=== PATIENT | female | born 1985 | race Caucasian/White ===

== ENCOUNTER 2017-06-06 01:28 | Inpatient (IN) | payer BC ==
[2017-06-06] MEDS ORDERED: Sodium Chloride 0.9% 10 ML Syringe FLUSH PRN (01:58)
[2017-06-06] MEDS ORDERED: Nalbuphine 20 MG/1 ML Amp IVPUSH PRN (01:58)
[2017-06-06] MEDS ORDERED: Ondansetron 4 MG/2 ML SDV IVPUSH PRN ×2 (01:58→12:44)
[2017-06-06] MEDS ORDERED: Ampicillin 2 GM in Sodium Chloride 0.9% 100 ML IV ONE (01:58)
[2017-06-06] MEDS ORDERED: Oxytocin/Lactated Ringers 10 UNIT/1,000 ML BAG IV SCH ×2 (02:00→10:15)
[2017-06-06] MEDS ORDERED: Acetaminophen 325 MG Tab PO PRN ×2 (02:07→19:04)
[2017-06-06] MEDS: Lactated Ringers 1,000 ML IV SCH ×4 (02:29→13:33)
[2017-06-06] MEDS: Ampicillin 1 GM in Sodium Chloride 0.9% 100 ML IV SCH ×4 (06:28→19:23)
[2017-06-06] MEDS ORDERED: fentaNYL 100 MCG/2 ML SDV EPIDUR PRN (12:44)
[2017-06-06] MEDS ORDERED: diphenhydrAMINE 50 MG/ML SDV IVPUSH PRN (12:44)
[2017-06-06] MEDS ORDERED: ePHEDrine 50 MG/ML SDV IVPUSH PRN (12:44)
[2017-06-06] MEDS ORDERED: Bupivacaine/fentaNYL/NS 100 ML Bag EPIDUR SCH (12:45)
--- NOTE | 2017-06-06 12:46 | PCM.PREANE ---
Preanesthetic Assessment - Procedure Proposed Procedure: AMY - Anesthesia/Transfusion/Family Hx Anesthesia History: Prior Anesthesia Without Reaction Family History of Anesthesia Reaction: No Transfusion History: No Prior Transfusion(s) - Review of Systems General: No Symptoms Pulmonary: No Symptoms Cardiovascular: No Symptoms Gastrointestinal: Other (GERD with ) Neurological: No Symptoms Other: Reports: None - Physical Assessment NPO Status Date: 06/06/17 NPO Status Time: 11:00 Pulse: 58 O2 Sat by Pulse Oximetry: 96 Respiratory Rate: 15 Vital Signs: Last Vital Signs Temp 36.4 C 06/06/17 01:58 Pulse 58 L 06/06/17 04:03 Resp 15 06/06/17 01:58 BP 124/70 06/06/17 01:58 Pulse Ox 96 06/06/17 01:58 Height: 1.63 m Weight: 96.524 kg ASA Class: 2 Mental Status: Alert & Oriented x3 Airway Class: Mallampati = 1 Dentition: Reports: Normal Dentition Thyro-Mental Finger Breadths: 3 Mouth Opening Finger Breadths: 3 ROM/Head Extension: Full Lungs: Clear to Auscultation, Normal Respiratory Effort Cardiovascular: Regular Rate, Regular Rhythm - Lab Values: Laboratory Last Values WBC 11.15 K/mm3 (3.98-10.04) H 06/06/17 02:10 RBC 4.41 M/mm3 (3.98-5.22) 06/06/17 02:10 Hgb 13.0 gm/L (11.2-15.7) 06/06/17 02:10 Hct 37.5 % (34.1-44.9) 06/06/17 02:10 MCV 85.0 fl (79.4-94.8) 06/06/17 02:10 MCH 29.5 pg (25.6-32.2) 06/06/17 02:10 MCHC 34.7 g/dl (32.2-35.5) 06/06/17 02:10 RDW Std Deviation 41.7 fL (36.4-46.3) 06/06/17 02:10 Plt Count 183 K/mm3 (182-369) 06/06/17 02:10 MPV 10.1 fl (9.4-12.3) 06/06/17 02:10 Neut % (Auto) 79.7 % (34.0-71.1) H 06/06/17 02:10 Lymph % (Auto) 11.8 % (19.3-51.7) L 06/06/17 02:10 [place] % (Auto) 7.6 % (4.7-12.5) 06/06/17 02:10 Eos % (Auto) 0.3 (0.7-5.8) L 06/06/17 02:10 Baso % (Auto) 0.2 % (0.1-1.2) 06/06/17 02:10 Neut # (Auto) 8.88 K/mm3 (1.56-6.13) H 06/06/17 02:10 Lymph # (Auto) 1.32 K/mm3 (1.18-3.74) 06/06/17 02:10 [place] # (Auto) 0.85 K/mm3 (0.24-0.36) H 06/06/17 02:10 Eos # (Auto) 0.03 K/mm3 (0.04-0.36) L 06/06/17 02:10 Baso # (Auto) 0.02 K/mm3 (0.01-0.08) 06/06/17 02:10 - Allergies Allergies/Adverse Reactions: Allergies Allergy/AdvReac Type Severity Reaction Status Date / Time No Known Allergies Allergy Verified 06/06/17 01:39 - Blood Blood Available: No Product(s) Available: None - Anesthesia Plan Pre-Op Medication Ordered: None - Acknowledgements Anesthesia Type Planned: Epidural Pt an Appropriate Candidate for the Planned Anesthesia: Yes Alternatives and Risks of Anesthesia Discussed w Pt/Guardian: Yes Pt/Guardian Understands and Agrees with Anesthesia Plan: Yes PreAnesthesia Questionnaire HEENT History: Reports: Allergic Rhinitis 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: Neurological History: Reports: Migraines Psychiatric History: Reports: Depression, Other (See Below) Other Psychiatric History: depression with both previous pregnancies - Past Surgical History HEENT Surgical History: Reports: Oral Surgery Other HEENT Surgeries/Procedures: wisdom teeth extraction Neurological Surgical History: Reports: None - SUBSTANCE USE Smoking Status *Q: Former Smoker Tobacco Use Within Last Twelve Months: No Second Hand Smoke Exposure: No Days Per Week of Alcohol Use: 0 Recreational Drug Use History: No - HOME MEDS Home Medications: Home Meds Vits #93/Iron Fum/FA [ Formula Tablet] 1 each PO DAILY [History] Acetaminophen with Codeine [Tylenol with Codeine #3 Tablet] 1 tab PO 06/06/17 [ History] - CURRENT (IN HOUSE) MEDS Current Meds: Current Medications Acetaminophen (Tylenol) 650 mg PO Q4H PRN PRN Reason: Pain Last Admin: 06/06/17 02:15 Dose: 650 mg Ampicillin Sodium 1 gm/ Sodium (Chloride) 100 mls @ 200 mls/hr IV Q4H BLAKE Last Admin: 06/06/17 10:21 Dose: 200 mls/hr Lactated Ringer's (Ringers, Lactated) 1,000 mls @ 100 mls/hr IV ASDIRECTED BLAKE Last Admin: 06/06/17 12:32 Dose: 100 mls/hr Oxytocin/Lactated Ringer's (Pitocin In Lr 10 Units/1,000 Ml) 10 unit in 1,000 mls @ 500 mls/hr IV .CONTINUOUS BLAKE Oxytocin/Lactated Ringer's (Pitocin In Lr 10 Units/1,000 Ml) 10 unit in 1,000 mls @ 12 mls/hr IV TITRATE BLAKE; 2 MUNITS/MIN PRN Reason: Protocol Last Titration: 06/06/17 11:13 Dose: 4 munits/min, 24 mls/hr Nalbuphine HCl (Nubain) 10 mg IVPUSH Q2H PRN PRN Reason: Pain (moderate 4-6) Ondansetron HCl (Zofran) 4 mg IVPUSH Q4H PRN PRN Reason: Nausea/Vomiting Sodium Chloride (Saline Flush) 10 ml FLUSH ASDIRECTED PRN PRN Reason: Keep Vein Open Discontinued Medications Ampicillin Sodium 2 gm/ Sodium (Chloride) 100 mls @ 200 mls/hr IV ONETIME ONE Stop: 06/06/17 02:27 Last Admin: 06/06/17 02:29 Dose: 200 mls/hr
--- NOTE | 2017-06-06 13:08 | HP ---
DATE OF ADMISSION: 06/06/2017 ADMISSION DIAGNOSIS: 40 and 1/7th week intrauterine , active labor. HISTORY OF PRESENT ILLNESS: The patient is a 31-year-old 3, para 2-0-0-2 white female, who is admitted into Labor and Delivery with contractions occurring every 3 minutes. Her due date was 06/05/2017, placing her at 40 and 1/7th weeks gestational age. Her due date was determined by a 12 and 5/7th-week ultrasound done on 11/27/2016. This is supported by a 2nd ultrasound done on 01/27/2017. The patient began labor during the course of the night and continues in labor at this time. She is janes every 2-4 minutes. She is group B strep positive and has received her first dose of antibiotics consistent of ampicillin per protocol. HISTORY: The patient was first seen in on 11/22/2016 at approximately 12 weeks and 1 day. She has had regular care since that time. Her weight gain has been from 189.2 pounds up to 212 pounds. Her vital signs have been stable and her fundal height growth has been appropriate. She has had mild anemia in . Her [place] depression screen score on 01/05/2017 was 9. The patient felt she is doing okay. She had flu vaccination on 05/31/2017. She has a history of depression. She is scheduled for induction on 06/09/2017. She desires epidural in Labor and Delivery. Her Tdap vaccination was given on 05/17/2017. Her group B strep positive status was determined by urine culture done at her first visit. PAST OBSTETRIC HISTORY: Her past obstetric history consists of her menarche being at age 14. Cycles every 28 days. The patient had nice regular monthly menses with her last menstrual period being 08/17/2016. The patient however was on control pills at the time of conception and therefore ultrasound parameters were used for her dating of the . Positive HCG was on 10/09/2016. Previous deliveries included a male infant born on 12/18/2009 at 41 weeks' gestational age after 22 hours of labor. Child's name is Guido. 2nd baby was born on 04/08/2014 at 41 weeks' gestational age after 10 hours of labor. 7 pounds and 1 ounce female , named Chiquita Hoffman. LABORATORY DATA: In shows her blood to be B positive with a negative antibody screen. Her hemoglobin at 1st visit was 13.4 and her platelets were 256,000. Pap smear was normal. Rubella titer showed immunity. RPR was nonreactive. Her urine culture showed group B strep positive status. Hepatitis B surface antigen was negative. HIV assay was negative. Her GC and chlamydia were also negative. Second trimester hemoglobin was low at 11.8 g/dL at which time she was started on iron therapy in the form of ferrous sulfate 325 mg per day. Her 1-hour GTT was normal at 106. Group B strep status was positive by urine culture done at first visit. ALLERGIES: None. CURRENT MEDICATIONS: 1. vitamins 1 daily. 2. Flonase 50 mcg/actuation suspension 1 spray in each nostril once daily p.r.n. 3. Iron in the form of ferrous sulfate 325 mg p.o. daily. PAST MEDICAL HISTORY: 1. Normal spontaneous vaginal delivery x1. 2. depression with both pregnancies. 3. Environmental allergies. PAST SURGICAL HISTORY: Unremarkable. FAMILY HISTORY: Sister with a history of seizures. She has 1 daughter who is approximately age 2 who is alive and well. 1 son age 6 alive and well. 1 sister with seizure disorders now presently age 29. 1 sister age 19 alive and well. Mother age 52 is alive and well. Father age 54 is alive and well. Maternal grandmother at age 86 related to age related issues. Maternal grandfather at age 86 prostate cancer. Paternal grandmother age 78 alive and well. Paternal grandfather age in his 80s alive and well. No anesthesia, bleeding, blood pressure, or related problems noted in the family. SOCIAL HISTORY: The patient is . is [place] Vo. They live in [place], [place]. She does not use any significant amounts of alcohol, drugs, or tobacco. REVIEW OF SYSTEMS: GENERAL: The patient is doing well. She is having late discomforts. SKIN: Negative. LUNGS: No shortness of breath or infectious symptoms. CARDIOVASCULAR: No chest pain or exercise intolerance. BREASTS: Changes associated with only. GI: No concerns. : Changes is associated with increasing fundal height and . MUSCULOSKELETAL: Occasional swelling but otherwise unremarkable. NEUROLOGIC: Unremarkable. PHYSICAL EXAMINATION: GENERAL: The patient is a well-developed, well-nourished, pleasant female, stated age, in no acute distress. She is alert and oriented x3 and appears to be a good historian. VITAL SIGNS: On last evaluation in clinic on 05/31/2017, her blood pressure was 130/72, weight was 212 pounds and heart rate was 125. Her weight at her first visit was 189 pounds and pre- weight was 182 pounds. She is 5 feet 4 inches tall. SKIN: Warm and dry without lesions. HEENT: Neck and back within normal limits. LUNGS: Clear with good breath sounds in all lung fraire. CARDIOVASCULAR: Regular rate and rhythm without murmurs. BREASTS: Not evaluated at this time having been done at first visit. At that time in the right breast, she had a 1-cm smooth, round lump which she had previously had evaluated with last ultrasound on 11/27/2015 showing a benign nodule. No followup was done during this . No changes in size noted by the patient. ABDOMEN: Protuberant with with a fundal height of 39 cm. Baby is in a vertex presentation. : Cervical exam on last evaluation 2+ cm, -3 station, 70% effaced, mid position, soft consistency. Baby is in a vertex presentation. EXTREMITIES AND NEUROLOGICAL: Grossly within normal limits with no significant edema noted. ASSESSMENT: 1. A 40 and 1/7th -week intrauterine , active labor. 2. Group B strep screen positive with positive urine culture at first visit - the patient has received her first dose of antibiotics. 3. The patient plans to nurse. 4. The patient is desiring epidural in labor and delivery. 5. The patient is up to date on her Tdap and her flu shot. PLAN: 1. Anticipate normal spontaneous vaginal delivery. 2. Epidural p.r.n. for pain. 3. Support nursing. 4. Routine labor care. 5. Medical Clinic chart in [facility] and for the [facility] clinic chart please place copy her medical chart Hospital to. MMODAL /[id number]
[2017-06-06] MEDS ORDERED: Witch Hazel Medicated Pads 100/Jar TOP PRN ×2 (17:26→19:04)
[2017-06-06] MEDS ORDERED: Benzocaine/Menthol 20%-0.5% Spray 56 GM Canister TOP PRN ×2 (17:27→19:04)
[2017-06-06] MEDS ORDERED: Ibuprofen 600 MG Tab PO PRN (17:27)
--- NOTE | 2017-06-06 18:40 | PCM.SN ---
- Free Text/Narrative Note: Bonnie was admitted on a.m. of 06/06/2017 in active labor. She had made a small amount of cervical change, was janes every 3 minutes and was uncomfortable. She had not had any sleep the night before. She is presently at 40-2/7 weeks gestational age. She was scheduled for induction later this week. She progressed slowly and with the assistance of Pitocin augmentation. Artificial rupture membranes was undertaken at approximately midday. She then progressed rapidly to complete cervical dilation by approximately 1615 hrs. At 1633 hrs. she delivered a viable, gil, 3400 g (7 pounds 7.9 ounces), 20 inch long female infant with Apgars of 8 and 9 in a right occiput anterior position over an intact perineum. Pitocin was administered IV after delivery of the baby. The placenta delivered in a [place] presentation at 1635 hrs. It appeared intact , complete and had a 3 vessel umbilical cord. Started per patient desire. Patient plans to nurse. She had approximately 100 mL blood loss. Condition: Good
[2017-06-06] MEDS ORDERED: Lanolin 100% Cream 7 GM Tube TOP PRN (19:04)
[2017-06-06] MEDS ORDERED: Docusate Sodium 100 MG Cap PO PRN (19:04)
[2017-06-07] MEDS: Ibuprofen 600 MG Tab PO PRN ×2 (00:02→09:44)
--- NOTE | 2017-06-07 07:50 | PCM48HPAN ---
Post Anesthesia Note - EVALUATION WITHIN 48HRS OF ANESTHETIC Vital Signs in Normal Range: Yes Patient Participated in Evaluation: No (in shower. visited with spouse) Respiratory Function Stable: Yes Airway Patent: Yes Cardiovascular Function Stable: Yes Hydration Status Stable: Yes Pain Control Satisfactory: Yes Nausea and Vomiting Control Satisfactory: Yes Mental Status Recovered: Yes
[2017-06-07 12:04] VITALS: BP 112/75
--- NOTE | 2017-06-07 12:04 | PCM.SN ---
- Free Text/Narrative Note: Performed a 1 patient is doing very well. Has minimal lochia. She did not sleep well last night however. Afebrile, vital signs stable. Abdomen soft, uterus is firm at the umbilicus. It is nontender. minimal edema A: PPD 1-doing well P: Routine cares
--- NOTE | 2017-06-07 18:30 | PCM.DCSUM1 ---
Discharge Summary - Hospital Course Free Text/Narrative:: Bonnie was admitted on a.m. of 06/06/2017 in active labor. She had made a small amount of cervical change, was janes every 3 minutes and was uncomfortable. She had not had any sleep the night before. She is presently at 40-2/7 weeks gestational age. She was scheduled for induction later this week. She progressed slowly and with the assistance of Pitocin augmentation. Artificial rupture membranes was undertaken at approximately midday. She then progressed rapidly to complete cervical dilation by approximately 1615 hrs. At 1633 hrs. she delivered a viable, gil, 3400 g (7 pounds 7.9 ounces), 20 inch long female infant with Apgars of 8 and 9 in a right occiput anterior position over an intact perineum. Pitocin was administered IV after delivery of the baby. The placenta delivered in a [place] presentation at 1635 hrs. It appeared intact , complete and had a 3 vessel umbilical cord. Started per patient desire. Patient plans to nurse. She had approximately 100 mL blood loss. patient is done well. She is nursing problems. Lochia is minimal. She is having no concerns. She is desiring discharge. - Discharge Data Discharge Date: 06/07/17 Discharge Disposition: Home, Self-Care 01 Condition: Good - Patient Instructions Diet: Regular Diet as Tolerated (Nursing diet with increased calories and calcium as recommended) Activity: As Tolerated (No intercourse or tampons until bleeding resolves) Driving: May Drive Today Showering/Bathing: May Shower (May take a bath) Notify Provider of: Fever, Increased Pain, Swelling and Redness, Nausea and/or Vomiting - Discharge Plan Home Medications: Home Meds Vits #93/Iron Fum/FA [ Formula Tablet] 1 each PO DAILY [History] Ibuprofen [IJD: Ibuprofen] 600 mg PO Q4H PRN #30 tablet 06/07/17 [Rx] Referrals: Len Koenig MD [Primary Care Provider] - [facility] - Discharge Summary/Plan Comment DC Time >30 min.: No Discharge Summary/Plan Comment: Discharge instructions: 1. Discharge home 2. Activity and follow-up with patient. 3. Nursing diet was increased calcium and calories as directed discussed with patient 4. Medications per home medication list printed, discussed and given to the patient. 5. Precautions given concern increased pain, bleeding, temperature, signs/ symptoms of DVT/PE. Return to clinic-[facility] -Dr. Koenig-4 weeks Diagnosis: 40 week pregnancydelivered Condition: good - Patient Data Vitals - Most Recent: Last Vital Signs Temp 36.4 C 06/07/17 11:42 Pulse 60 06/07/17 11:42 Resp 18 06/07/17 11:42 BP 112/75 06/07/17 11:42 Pulse Ox 99 06/07/17 11:42 Weight - Most Recent: 96.524 kg I&O - Last 24 hours: Intake & Output 06/07/17 06/07/17 06/07/17 06:59 14:59 22:59 Intake Total 300 Balance 300 Med Orders - Current: Current Medications Acetaminophen (Tylenol) 650 mg PO Q4H PRN PRN Reason: mild pain or fever Benzocaine/Menthol (Dermoplast Pain Relief [place]) 0 gm TOP ASDIRECTED PRN PRN Reason: Perineal Comfort Measure Docusate Sodium (Colace) 100 mg PO BID PRN PRN Reason: Constipation Emollient Ointment (Lansinoh Hpa) 0 gm TOP ASDIRECTED PRN PRN Reason: Sore Nipples Ibuprofen (Motrin) 600 mg PO Q4H PRN PRN Reason: Mild pain or fever Last Admin: 06/07/17 09:44 Dose: 600 mg Witch Sapna (Tucks) 1 pad TOP ASDIRECTED PRN PRN Reason: Hemorrhoid pain Discontinued Medications Acetaminophen (Tylenol) 650 mg PO Q4H PRN PRN Reason: Pain Last Admin: 06/06/17 02:15 Dose: 650 mg Benzocaine/Menthol (Dermoplast Pain Relief [place]) 1 gm TOP ASDIRECTED PRN PRN Reason: perineal pain Last Admin: 06/06/17 18:27 Dose: 1 can Diphenhydramine HCl (Benadryl) 25 mg IVPUSH Q6H PRN PRN Reason: Pruritis Ephedrine Sulfate (Ephedrine Sulfate) 5 mg IVPUSH ASDIRECTED PRN PRN Reason: Hypotension Fentanyl (Sublimaze) 100 mcg EPIDUR Q3H PRN PRN Reason: Pain Last Admin: 06/06/17 13:08 Dose: 100 mcg Fentanyl/Bupivacaine HCl (Fentanyl/Bupivacaine/Ns 2 Mcg-0.125% 100 Ml) 100 ml EPIDUR ASDIRECTED BLAKE Last Admin: 06/06/17 13:08 Dose: 100 ml Ampicillin Sodium 2 gm/ Sodium (Chloride) 100 mls @ 200 mls/hr IV ONETIME ONE Stop: 06/06/17 02:27 Last Admin: 06/06/17 02:29 Dose: 200 mls/hr Ampicillin Sodium 1 gm/ Sodium (Chloride) 100 mls @ 200 mls/hr IV Q4H BLAKE Last Admin: 06/06/17 19:23 Dose: Not Given Lactated Ringer's (Ringers, Lactated) 1,000 mls @ 100 mls/hr IV ASDIRECTED BLAKE Last Admin: 06/06/17 13:33 Dose: 100 mls/hr Oxytocin/Lactated Ringer's (Pitocin In Lr 10 Units/1,000 Ml) 10 unit in 1,000 mls @ 500 mls/hr IV .CONTINUOUS BLAKE Oxytocin/Lactated Ringer's (Pitocin In Lr 10 Units/1,000 Ml) 10 unit in 1,000 mls @ 12 mls/hr IV TITRATE BLAKE; 2 MUNITS/MIN PRN Reason: Protocol Last Titration: 06/06/17 15:33 Dose: 4 munits/min, 24 mls/hr Ibuprofen (Motrin) 600 mg PO Q6H PRN PRN Reason: Pain Last Admin: 06/06/17 18:27 Dose: 600 mg Nalbuphine HCl (Nubain) 10 mg IVPUSH Q2H PRN PRN Reason: Pain (moderate 4-6) Ondansetron HCl (Zofran) 4 mg IVPUSH Q4H PRN PRN Reason: Nausea/Vomiting Ondansetron HCl (Zofran) 4 mg IVPUSH ONETIME PRN PRN Reason: Nausea/Vomiting Sodium Chloride (Saline Flush) 10 ml FLUSH ASDIRECTED PRN PRN Reason: Keep Vein Open Wittommy Alejo (Tucks) 1 pad TOP ASDIRECTED PRN PRN Reason: perineal pain Last Admin: 06/06/17 18:27 Dose: 1 tub *Q Meaningful Use (DIS) - VTE *Q VTE Criteria *Q: - Stroke *Q Stroke Criteria *Q: - AMI *Q AMI Criteria *Q:
== END 2017-06-07 19:05 | disposition home or self-care (01) | DRG 560 ==
LOC: JD.OBCHECK 01:28 → JD.OB 01:31 → JD.OBCHECK 02:03 → JD.OB 02:04 → OBSVTOIN 16:33
PROVIDERS: ADMIT Obstetrics & Gynecology; ATTEND Obstetrics & Gynecology
PROC: 10E0XZZ Delivery of Products of Conception, External Approach (ICD-10-PCS; principal; 2017-06-06)
PROC: 10907ZC Drainage of Amniotic Fluid, Therapeutic from Products of Conception, Via Natural or Artificial Opening (ICD-10-PCS; 2017-06-06)
PROC: 00HU33Z Insertion of Infusion Device into Spinal Canal, Percutaneous Approach (ICD-10-PCS; 2017-06-06)
PROC: 3E0R3BZ Introduction of Anesthetic Agent into Spinal Canal, Percutaneous Approach (ICD-10-PCS; 2017-06-06)
DX: O99.824 Streptococcus B carrier state complicating childbirth (principal); Z3A.40 40 weeks gestation of pregnancy; Z37.0 Single live birth
CPT/HCPCS: 36415; 59409; 85025; 85027; A9270-GY; J0290; J2590; J3010; J7030; J7120